=== PATIENT | male | born 1975 | race Caucasian/White ===

== ENCOUNTER 2020-11-10 14:39 | Emergency (ER) | payer BC, SELFPAY ==
[2020-11-10 14:47] VITALS: BP 154/112; PULSE 88; RESP 18; TEMP 36.8; O2SAT 98
--- NOTE | 2020-11-10 14:55 | ED.EYEPROB ---
HPI - Eye Problem General Chief complaint: Eye Problems Stated complaint: right eye itching and matting Time Seen by Provider: 11/10/20 14:55 Source: patient and RN notes reviewed Mode of arrival: ambulatory Limitations: no limitations History of Present Illness HPI Narrative: 45 year old male presents to [facility] care with complaints of 2-day history of itching, burning, and matting shut of right eye with photophobia noted. Patient denies any feeling of foreign body or any trauma to his right eye, he denies any sharp pain or any change in his vision from the right eye. Visual acuity without glasses, right eye 20/50. left 20/40, some whitish mucoid drainage noted to inner canthus of right eye with conjunctiva red. Location: right eye Eye Symptoms: burning, redness, itching, discharge and other (matting shut) Mechanism: none If Pain, Quality: burning Treatments Prior to Arrival: other (cold wash cloth) Related Data Home Medications Medication Instructions Recorded Confirmed amitriptyline 25 mg PO DAILY 11/10/20 11/10/20 escitalopram oxalate 20 mg PO DAILY 11/10/20 11/10/20 lisinopril 40 mg PO DAILY 11/10/20 11/10/20 propranolol 60 mg PO DAILY 11/10/20 11/10/20 rimegepant [Nurtec ODT] 75 mg PO DAILY 11/10/20 11/10/20 Allergies Allergy/AdvReac Type Severity Reaction Status Date / Time No Known Allergies Allergy Verified 11/10/20 15:11 Review of Systems Review of Systems: Narrative: CONSTITUTIONAL: Denies fever, chills, or sweats. EYES: Denies visual changes,positive for redness,and discharge from right eye with burning sensation and itching. and some photophobia of right eye. ENT: Denies rhinorrhea, congestion, sore throat, or otalgia. CARDIOVASCULAR: Denies chest pain, palpitations, or edema. RESPIRATORY: Denies cough or dyspnea. GASTROINTESTINAL: Denies abdominal pain, nausea, vomiting, or diarrhea. GENITOURINARY: Denies dysuria or hematuria. SKIN: Denies rash or itching. MUSCULOSKELETAL: Denies back pain, joint pain, or myalgia. NEUROLOGIC: Denies present headache states history of migraines,no numbness, or weakness. PSYCHIATRIC: Positive history of anxiety or depression. All systems reviewed & are unremarkable except as noted in HPI and below PMFSH Past Medical History Medical History (Updated 11/10/20 @ 15:36 by Mandi Salvador NP) Depression Headache, classical migraine Hypertension Surgical History Surgical History (Updated 11/10/20 @ 15:38 by Mandi Salvador NP) No history of previous surgery Family History Family History (Updated 11/10/20 @ 15:38 by Mandi Salvador NP) Other No significant family history Social History Social History (Updated 11/10/20 @ 15:06 by Mandi Salvador NP) Smoking status: Never smoker Alcohol intake: never Substance use: never Living arrangements: with family Gender identity (if verbalized by the patient): Male Comments At time of signature, agree with nursing past medical, surgical, social and family history. There is no relevant family history pertinent to the presenting complaint Exam Narrative: Exam Narrative: GENERAL: Well-appearing, well-nourished, and in no acute distress. HEAD: Normocephalic, atraumatic. EYES: PERRLA and EOMI. conjunctiva of right eye reddened with mucoid drainage noted to inner canthus of right eye, denies any sharp pain or any change in vision to right eye. ENT: Nares clear, no rhinorrhea or epistaxis. Mucous membranes moist. TM's normal with good light reflex, throat pink with no exudate or lesions or tonsil enlargement. NECK: Supple. no lymphadenopathy CHEST: Clear to auscultation. No respiratory distress.SAO2 98% on room air. HEART: Regular rate and rhythm. No murmur heard. Normal peripheral pulses. ABDOMEN: Soft, nontender, nondistended, normal active bowel sounds. EXTREMITIES: Normal range of motion. No edema. SKIN: Warm, dry, no rash. NEURO: No focal deficits. Alert and oriented x3. Course Vital Signs Vital
[2020-11-10 15:13] VITALS: BP 142/90
== END 2020-11-10 15:14 | disposition home or self-care (01) ==
PROVIDERS: Emergency Provider Registered Nurse
DX: H10.9 Unspecified conjunctivitis (principal); F32.9 Major depressive disorder, single episode, unspecified; I10 Essential (primary) hypertension
CPT/HCPCS: 99213; G0463

== ENCOUNTER 2021-09-06 08:05 | Emergency (ER) | payer BC, SELFPAY ==
[2021-09-06 08:11] VITALS: BP 153/103; PULSE 70; RESP 14; TEMP 36.6; O2SAT 99
--- NOTE | 2021-09-06 08:13 | ED.HA ---
HPI - Headache General Chief Complaint: Upper Respiratory Infection Stated Complaint: Headache Time Seen by Provider: 09/06/21 08:16 Source: patient, RN notes reviewed and old records reviewed Mode of arrival: ambulatory Limitations: no limitations History of Present Illness HPI Narrative: 45-year-old male who presents to [facility] with complaints of awakening at 0500 with headache in his temporal region with congestion in sinus area with body aches. Patient denies any nausea or vomiting, reports that he did take Imitrex this morning but his headache pain is not like his normal migraines. Patient was started on Verapamil 120mg 2 days ago for his elevated blood pressure and patient states that he has been monitoring his blood pressure at home routinely a couple of times a day with his diastolic pressures ranging around 100. Blood pressure checked manually with reading of 156/90. Patient denies any chest pain or any shortness of breath or any acute cough or chest congestion. Patient has had COVID in June of 2021, has not had flu shot Pertinent past history: migraines and hypertension Time: 05:00 Onset description: on awakening Location: temporal (bilateral) and facial Severity: moderate Pain scale (0-10): 5 Quality & Timing: aching Exacerbating factors: none Relieving factors: nothing Context: other (awoke with symptoms) Associated symptoms: cough and other (nasal congestion, temporal headache, facial pressure) Treatments prior to arrival: migraine medication Related Data Home Medications Medication Instructions Recorded Confirmed escitalopram oxalate 20 mg PO DAILY 11/10/20 11/10/20 lisinopril 40 mg PO DAILY 11/10/20 11/10/20 propranolol 60 mg PO DAILY 11/10/20 11/10/20 nabumetone 750 mg PO BID 09/06/21 09/06/21 ondansetron HCl 4 mg PO Q8H PRN 09/06/21 09/06/21 rosuvastatin 10 mg PO DAILY 09/06/21 09/06/21 sumatriptan succinate 50 mg PO DAILY PRN 09/06/21 09/06/21 verapamil 120 mg PO DAILY 09/06/21 09/06/21 Allergies Allergy/AdvReac Type Severity Reaction Status Date / Time enoxaparin [From Lovenox] Allergy Mild Redness of Verified 09/06/21 08:43 Skin Review of Systems Review of Systems: CONSTITUTIONAL: Denies fever, chills, or sweats. EYES: Denies visual changes, redness, or discharge. ENT: Positive for rhinorrhea, congestion, sinus pressure,no sore throat, or otalgia. CARDIOVASCULAR: Denies chest pain, palpitations, or edema. RESPIRATORY: Positive dry cough denies dyspnea. GASTROINTESTINAL: Denies abdominal pain, nausea, vomiting, or diarrhea. GENITOURINARY: Denies dysuria or hematuria. SKIN: Denies rash or itching. MUSCULOSKELETAL: Denies back pain, joint pain, positive for body aches NEUROLOGIC:positive for temporal headache, numbness, or weakness. PSYCHIATRIC: Positive for history of anxiety or depression. All systems reviewed & are unremarkable except as noted in HPI and below PMFSH Past Medical History Medical History (Updated 09/06/21 @ 11:41 by Mandi Salvador NP) Depression DVT (deep venous thrombosis) Headache, classical migraine Hypertension Injury of elbow, right with skin graft Surgical History Surgical History (Updated 09/06/21 @ 08:39 by Mandi Salvador NP) History of carpal tunnel release of both wrists Hx of right knee surgery fracture of knee with pinning Family History Family History (Updated 09/06/21 @ 09:03 by Mandi Salvador NP) Sibling Hypertension Grandparent Malignant neoplasm of prostate Diabetes mellitus Heart disease Mother Factor V Leiden Father History of blood clots Social History Social History Smoking status: Never smoker Alcohol intake: never Substance use: never Gender identity (if verbalized by the patient): Male Comments At time of signature, agree with nursing past medical, surgical, social and family history. There is no relevant family history pertinent to the presen
[2021-09-06 08:30] VITALS: BP 156/90
[2021-09-06 08:55] VITALS: BP 159/102; PULSE 61
[2021-09-06 08:59] VITALS: BP 158/103; PULSE 64
== END 2021-09-06 09:10 | disposition home or self-care (01) ==
PROVIDERS: Emergency Provider Registered Nurse
DX: J06.9 Acute upper respiratory infection, unspecified (principal); R51.9 Headache, unspecified; I10 Essential (primary) hypertension; Z86.718 Personal history of other venous thrombosis and embolism; F32.A Depression, unspecified; Z86.16 Personal history of COVID-19
CPT/HCPCS: 87804; 99213; G0463

== ENCOUNTER 2021-09-22 12:59 | Emergency (ER) | payer BC, SELFPAY ==
[2021-09-22 13:03] VITALS: BP 151/95; PULSE 63; RESP 16; TEMP 36.6; O2SAT 98
--- NOTE | 2021-09-22 13:03 | ED.URI ---
HPI - URI/Sore Throat General Chief Complaint: Upper Respiratory Infection Stated Complaint: Headache/ Sinus Congestion Time Seen by Provider: 09/22/21 13:03 Source: patient and RN notes reviewed History of Present Illness HPI Narrative: Patient is a 45-year-old male who presents the urgent care with complaints of a headache and sinus congestion/pressure. Patient states his symptoms started yesterday when he woke up with a headache. Patient has been following up with his neurologist for his history of headaches/migraines. Patient states that he did take his Imitrex. Denies of any fevers, nausea, vomiting or cough. Denies of sore throat. Denies of any ill contacts. Patient requesting a work note. No other acute complaints. No acute distress noted. Patient aware of the plan of care. Some parts of this dictation were generated by voice recognition software and may contain typographical and/or grammatical inaccuracies. Related Data Home Medications Medication Instructions Recorded Confirmed escitalopram oxalate 20 mg PO DAILY 11/10/20 09/06/21 lisinopril 40 mg PO DAILY 11/10/20 09/06/21 propranolol 60 mg PO DAILY 11/10/20 09/06/21 nabumetone 750 mg PO BID 09/06/21 09/06/21 rosuvastatin 10 mg PO DAILY 09/06/21 09/06/21 sumatriptan succinate 50 mg PO DAILY PRN 09/06/21 09/06/21 verapamil 120 mg PO DAILY 09/06/21 09/06/21 Allergies Allergy/AdvReac Type Severity Reaction Status Date / Time enoxaparin [From Lovenox] Allergy Mild Redness of Verified 09/22/21 13:09 Skin Review of Systems Review of Systems: CONSTITUTIONAL: Denies fever, chills, or sweats. EYES: Denies visual changes, redness, or discharge. ENT: Reports of sinus pressure/congestion and postnasal drainage CARDIOVASCULAR: Denies chest pain, palpitations, or edema. RESPIRATORY: Denies cough or dyspnea. GASTROINTESTINAL: Denies abdominal pain, nausea, vomiting, or diarrhea. GENITOURINARY: Denies dysuria or hematuria. SKIN: Denies rash or itching. MUSCULOSKELETAL: Denies back pain, joint pain, or myalgia. NEUROLOGIC: Reports of headache All other systems reviewed are negative, except as documented in HPI. [facility] Past Medical History Medical History (Updated 09/22/21 @ 13:14 by RUTHIE Toscano) Depression DVT (deep venous thrombosis) Headache, classical migraine Hypertension Injury of elbow, right with skin graft Surgical History Surgical History (Updated 09/06/21 @ 08:39 by Mandi Salvador NP) History of carpal tunnel release of both wrists Hx of right knee surgery fracture of knee with pinning Family History Family History (Updated 09/06/21 @ 09:03 by Mandi Salvador NP) Sibling Hypertension Grandparent Malignant neoplasm of prostate Diabetes mellitus Heart disease Mother Factor V Leiden Father History of blood clots Social History Social History Smoking status: Never smoker Alcohol intake: never Substance use: never Gender identity (if verbalized by the patient): Male Comments At the time of my signature, I reviewed and agree with the nursing past medical, surgical, social, and family history. There is no relevant family history pertinent to the patient complaint. Exam Narrative: GENERAL: This is a well-nourished, well-developed patient, in no apparent distress. HEAD: normocephalic, atraumatic. Moderate frontal sinus tenderness EYES: PERRL. Sclera clear/white. Vision is grossly intact. EARS: External ears normal, auditory canals clear and without drainage, TMs normal without perforation. Hearing grossly intact. NOSE: External nose normal with no obvious nasal discharge, nares without redness, no rhinorrhea. THROAT: Mucous membranes moist, posterior pharynx clear. Moderate postnasal drainage NECK: Neck supple CARDIOVASCULAR: Regular rate and rhythm without murmurs, gallops, or rubs. RESPIRATORY: Clear to auscultation. Breath sounds equal bilater
== END 2021-09-22 13:17 | disposition home or self-care (01) ==
PROVIDERS: Emergency Provider Nurse Practitioner Family
DX: J32.9 Chronic sinusitis, unspecified (principal); I10 Essential (primary) hypertension; F32.A Depression, unspecified; Z86.718 Personal history of other venous thrombosis and embolism
CPT/HCPCS: 99211; G0463

== ENCOUNTER 2021-11-30 11:06 | Emergency (ER) | payer BC, SELFPAY ==
[2021-11-30 11:11] VITALS: BP 160/104; PULSE 61; RESP 16; TEMP 36.4; O2SAT 99
--- NOTE | 2021-11-30 11:23 | ED.URI ---
HPI - URI/Sore Throat General Chief Complaint: Upper Respiratory Infection Stated Complaint: sore throat aches chills Time Seen by Provider: 11/30/21 11:20 Source: patient Mode of arrival: ambulatory Limitations: no limitations History of Present Illness HPI Narrative: Mr. Squires is a 46-year-old male patient presenting to the clinic today with complaints of sore throat, congestion, and cough. He rates his pain 8 out of 10 on the sore throat. States that the symptoms just began last night. He took a COVID test this morning and it was negative. He denies any known exposure today but with flu, COVID, or strep. MD elicited complaint: cough, sore throat, rhinorrhea and nasal congestion Related Data Home Medications Medication Instructions Recorded Confirmed escitalopram oxalate 20 mg tablet 20 mg PO DAILY 11/10/20 11/30/21 lisinopril 40 mg tablet 40 mg PO DAILY 11/10/20 11/30/21 propranolol 60 mg capsule,24 60 mg PO DAILY 11/10/20 11/30/21 hr,extended release rosuvastatin 10 mg tablet 10 mg PO DAILY 09/06/21 11/30/21 sumatriptan succinate 50 mg tablet 50 mg PO DAILY PRN Migraine 09/06/21 11/30/21 Headache verapamil 120 mg tablet,extended 120 mg PO DAILY 09/06/21 11/30/21 release apixaban 5 mg tablet (Eliquis) 5 tablet PO DAILY 11/30/21 11/30/21 Allergies Allergy/AdvReac Type Severity Reaction Status Date / Time enoxaparin [From Lovenox] Allergy Mild Redness of Verified 11/30/21 11:18 Skin Review of Systems Review of Systems: Pertinent positives per HPI. Patient denies any fever, chills, rash, headache, visual changes, dizziness, cough, shortness of breath, chest pain, palpitations, nausea, vomiting, diarrhea, constipation, abdominal pain, or any urinary issues. [facility] Past Medical History Medical History Depression DVT (deep venous thrombosis) Headache, classical migraine Hypertension Injury of elbow, right with skin graft Surgical History Surgical History History of carpal tunnel release of both wrists Hx of right knee surgery fracture of knee with pinning Family History Family History Sibling Hypertension Grandparent Malignant neoplasm of prostate Diabetes mellitus Heart disease Mother Factor V Leiden Father History of blood clots Social History Social History Smoking status: Never smoker Alcohol intake: never Substance use: never Gender identity (if verbalized by the patient): Male Comments At the time of my signature, I reviewed and agree with the nursing past medical, surgical, social, and family history. There is no relevant family history pertinent to the patient complaint. Exam Narrative: General: Well-developed, obese, in no apparent distress Head: Normocephalic, atraumatic Eyes: Pupils equally round and reactive to light bilaterally, EOM intact, sclera and conjunctive clear, no discharge, lids normal Ears: TMs intact and dull, ear canals clear, no drainage, grossly hearing normal. Nose: Nares patent, clear nasal discharge, mild inflammation, no sinus tenderness. Mouth: Oral pharynx without lesions or masses, good dentition, MMM. Oropharynx red and erythemic with tonsillar enlargement Neck: Supple, trachea midline, positive enlargement of anterior cervical nodes, no thyroid masses or goiter palpable. Cardio: Regular rate and rhythm, s1 and s2 normal, no murmur appreciated. Resp: Clear to auscultation bilaterally, no rhonchi, rales, wheezing or rubs Course Course Emergency Course: Portions of this record may have been created with voice recognition software. Level of Care: Express Care Visit Vital Signs Vital signs: Vital Signs Temperature 36.4 C 11/30/21 11:11 Pulse Rate 61 11/30/21 11:11 Respi
== END 2021-11-30 11:59 | disposition home or self-care (01) ==
PROVIDERS: Emergency Provider Nurse Practitioner Family
DX: J02.9 Acute pharyngitis, unspecified (principal); B34.9 Viral infection, unspecified; I10 Essential (primary) hypertension; Z86.718 Personal history of other venous thrombosis and embolism; F32.A Depression, unspecified
CPT/HCPCS: 87081; 87880; 99213; G0463

== ENCOUNTER 2022-01-19 15:54 | Emergency (ER) | payer BC, SELFPAY ==
[2022-01-19 16:05] VITALS: BP 138/90; PULSE 60; RESP 18; TEMP 36.9; O2SAT 100
--- NOTE | 2022-01-19 16:29 | ED.HA ---
HPI - Headache General Chief Complaint: Headache Stated Complaint: masive migraine Time Seen by Provider: 01/19/22 16:29 Source: patient Mode of arrival: ambulatory Limitations: no limitations History of Present Illness HPI Narrative: 46 yo M presents with c/o migraine for 2 days. Reports photophobia, N/V, light sensitivity. Normal migraine pain. Thinks is related to recent stress, step dad . Takes daily medication to prevent migraines. Unsure of name. Gets botox every few months. Ambulatory with steady gait. No N/V at . Also needs work note. All systems reviewed and negative except as noted above. Related Data Home Medications Medication Instructions Recorded Confirmed escitalopram oxalate 20 mg tablet 20 mg PO DAILY 11/10/20 01/19/22 lisinopril 40 mg tablet 40 mg PO DAILY 11/10/20 01/19/22 propranolol 60 mg capsule,24 60 mg PO DAILY 11/10/20 01/19/22 hr,extended release rosuvastatin 10 mg tablet 10 mg PO DAILY 09/06/21 01/19/22 sumatriptan succinate 50 mg tablet 50 mg PO DAILY PRN Migraine 09/06/21 01/19/22 Headache verapamil 120 mg tablet,extended 120 mg PO DAILY 09/06/21 01/19/22 release apixaban 5 mg tablet (Eliquis) 5 tablet PO DAILY 11/30/21 01/19/22 nabumetone 750 mg tablet 750 mg PO BID 01/19/22 01/19/22 Allergies Allergy/AdvReac Type Severity Reaction Status Date / Time enoxaparin [From Lovenox] Allergy Mild Redness of Verified 01/19/22 16:09 Skin Review of Systems Review of Systems: CONSTITUTIONAL: Denies fever, chills, or sweats. EYES: Denies visual changes, redness, or discharge. ENT: Denies rhinorrhea, congestion, sore throat, or otalgia. CARDIOVASCULAR: Denies chest pain, palpitations, or edema. RESPIRATORY: Denies cough or dyspnea. GASTROINTESTINAL: Denies abdominal pain, nausea, vomiting, or diarrhea. GENITOURINARY: Denies dysuria or hematuria. SKIN: Denies rash or itching. MUSCULOSKELETAL: Denies back pain, joint pain, or myalgia. NEUROLOGIC: Reports migraine. Denies numbness, or weakness. PSYCHIATRIC: Denies anxiety or depression. All other systems reviewed are negative, except as documented in HPI. [facility] Past Medical History Medical History Depression DVT (deep venous thrombosis) Headache, classical migraine Hypertension Injury of elbow, right with skin graft Surgical History Surgical History History of carpal tunnel release of both wrists Hx of right knee surgery fracture of knee with pinning Family History Family History Sibling Hypertension Grandparent Malignant neoplasm of prostate Diabetes mellitus Heart disease Mother Factor V Leiden Father History of blood clots Social History Social History Smoking status: Never smoker Alcohol intake: never Substance use: never Gender identity (if verbalized by the patient): Male Comments At time of signature, agree with nursing past medical, surgical, social and family history. There is no relevant family history pertinent to the presenting complaint. Exam Narrative: GENERAL: This is a well-nourished, well-developed patient, in no apparent distress. HEAD: normocephalic, atraumatic. EYES: PERRL. Sclera clear/white. Vision is grossly intact. Extraocular motions normal. EARS: External ears normal NOSE: External nose normal NECK: Neck supple, non-tender without lymphadenopathy, masses or thyromegaly. CARDIOVASCULAR: Regular rate and rhythm without murmurs, gallops, or rubs. RESPIRATORY: Clear to auscultation. Breath sounds equal bilaterally. No wheezes, rales, or rhonchi. SKIN: warm, Dry, intact with no suspicious lesions or rash, good texture and turgor. NEURO: awake, alert, and oriented to person, place and time. There were no obvious focal neurologi
[2022-01-19] MEDS: KETOROLAC (*BKC) 60 MG/2 ML VIAL IM (16:40)
[2022-01-19] MEDS: ONDANSETRON HCL ODT 4 MG TABLET SUBLINGUAL (16:40)
[2022-01-19] MEDS: diphenhydrAMINE HCl CAP 25 MG CAPSULE PO (16:40)
== END 2022-01-19 17:00 | disposition home or self-care (01) ==
PROVIDERS: Emergency Provider Nurse Practitioner Family
DX: G43.909 Migraine, unspecified, not intractable, without status migrainosus (principal); I10 Essential (primary) hypertension; F32.A Depression, unspecified; Z86.718 Personal history of other venous thrombosis and embolism
CPT/HCPCS: 96372; 99213; A9270; G0463; J1885

== ENCOUNTER 2022-06-20 11:30 | Emergency (ER) | payer BC, SELFPAY ==
--- NOTE | 2022-06-20 11:35 | ED.HA ---
HPI - Headache General Chief Complaint: Headache Stated Complaint: Headache/Blood Pressure Problem Time Seen by Provider: 06/20/22 11:35 Source: patient and RN notes reviewed History of Present Illness HPI Narrative: Patient is a 46-year-old male who presents to urgent care with complaints of headache, cough, nasal drainage, body aches. Patient states he has not taken anything [id number] for his symptoms. Patient states the symptoms started 2 days ago. No other acute complaints. No acute distress noted. Patient aware of the plan of care. Some parts of this dictation were generated by voice recognition software and may contain typographical and/or grammatical inaccuracies. Related Data Home Medications Medication Instructions Recorded Confirmed escitalopram oxalate 20 mg tablet 20 mg PO DAILY 11/10/20 01/19/22 lisinopril 40 mg tablet 40 mg PO DAILY 11/10/20 01/19/22 propranolol 60 mg capsule,24 60 mg PO DAILY 11/10/20 01/19/22 hr,extended release rosuvastatin 10 mg tablet 10 mg PO DAILY 09/06/21 01/19/22 sumatriptan succinate 50 mg tablet 50 mg PO DAILY PRN Migraine 09/06/21 01/19/22 Headache verapamil 120 mg tablet,extended 120 mg PO DAILY 09/06/21 01/19/22 release apixaban 5 mg tablet (Eliquis) 5 tablet PO DAILY 11/30/21 01/19/22 nabumetone 750 mg tablet 750 mg PO BID 01/19/22 01/19/22 Allergies Allergy/AdvReac Type Severity Reaction Status Date / Time enoxaparin [From Lovenox] Allergy Mild Redness of Verified 06/20/22 11:49 Skin Review of Systems Review of Systems: CONSTITUTIONAL: Denies fever, chills, or sweats. EYES: Denies visual changes, redness, or discharge. ENT: Reports of congestion, postnasal drainage, rhinorrhea CARDIOVASCULAR: Denies chest pain, palpitations, or edema. RESPIRATORY: reports of cough without dyspnea GASTROINTESTINAL: Denies abdominal pain, nausea, vomiting, or diarrhea. GENITOURINARY: Denies dysuria or hematuria. SKIN: Denies rash or itching. MUSCULOSKELETAL: Denies back pain, joint pain, or myalgia. NEUROLOGIC: Denies headache, numbness, or weakness. All other systems reviewed are negative, except as documented in HPI. PMFSH Past Medical History Medical History Depression DVT (deep venous thrombosis) Headache, classical migraine Hypertension Injury of elbow, right with skin graft Surgical History Surgical History History of carpal tunnel release of both wrists Hx of right knee surgery fracture of knee with pinning Family History Family History Sibling Hypertension Grandparent Malignant neoplasm of prostate Diabetes mellitus Heart disease Mother Factor V Leiden Father History of blood clots Social History Social History Smoking status: Never smoker Alcohol intake: never Substance use: never Gender identity (if verbalized by the patient): Male Comments At the time of my signature, I reviewed and agree with the nursing past medical, surgical, social, and family history. There is no relevant family history pertinent to the patient complaint. Exam Narrative: GENERAL: This is a well-nourished, well-developed patient. Appears fatigued HEAD: normocephalic, atraumatic. EYES: PERRL. Sclera clear/white. Vision is grossly intact. EARS: External ears normal, auditory canals clear and without drainage, TMs normal without perforation. Hearing grossly intact. NOSE: External nose normal with no obvious nasal discharge, nares without redness, no rhinorrhea. THROAT: Mucous membranes moist, posterior pharynx clear. moderate postnasal drainage NECK: Neck supple, non-tender without lymphadenopathy, masses or thyromegaly. CARDIOVASCULAR: Regular rate and rhythm without murmurs, gallops, or rubs. R
[2022-06-20 11:43] VITALS: BP 136/104; PULSE 60; RESP 16; TEMP 36.7; O2SAT 97
== END 2022-06-20 12:12 | disposition home or self-care (01) ==
PROVIDERS: Emergency Provider Nurse Practitioner Family
DX: J10.1 Influenza due to other identified influenza virus with other respiratory manifestations (principal); I10 Essential (primary) hypertension; Z86.718 Personal history of other venous thrombosis and embolism; Z20.822 Contact with and (suspected) exposure to COVID-19
CPT/HCPCS: 87426; 87804; 99213; C9803; G0463

== ENCOUNTER 2022-07-06 08:47 | Emergency (ER) | payer BC, SELFPAY ==
[2022-07-06 08:51] VITALS: BP 149/111; PULSE 81; RESP 16; TEMP 36.6; O2SAT 99
--- NOTE | 2022-07-06 08:55 | ED.URI ---
HPI - URI/Sore Throat General Chief Complaint: Eye Problems Stated Complaint: right eye/sinus issues Time Seen by Provider: 07/06/22 09:12 Source: patient, RN notes reviewed and old records reviewed Mode of arrival: ambulatory Limitations: no limitations History of Present Illness HPI Narrative: 46-year-old presents to the [facility] with complaints sinus congestion, rhinorrhea and right eye redness. patient reports that symptoms started last night. States children were home last week [place]. patient denies any blurry vision or change in vision. Woke up this morning with the eye crusted over. No treatment prior to Related Data Home Medications Medication Instructions Recorded Confirmed escitalopram oxalate 20 mg tablet 20 mg PO DAILY 11/10/20 07/06/22 lisinopril 40 mg tablet 40 mg PO DAILY 11/10/20 07/06/22 propranolol 60 mg capsule,24 60 mg PO DAILY 11/10/20 07/06/22 hr,extended release rosuvastatin 10 mg tablet 10 mg PO DAILY 09/06/21 07/06/22 sumatriptan succinate 50 mg tablet 50 mg PO DAILY PRN Migraine 09/06/21 07/06/22 Headache verapamil 120 mg tablet,extended 120 mg PO DAILY 09/06/21 07/06/22 release apixaban 5 mg tablet (Eliquis) 5 tablet PO DAILY 11/30/21 07/06/22 nabumetone 750 mg tablet 750 mg PO BID 01/19/22 07/06/22 Allergies Allergy/AdvReac Type Severity Reaction Status Date / Time enoxaparin [From Lovenox] Allergy Mild Redness of Verified 07/06/22 09:08 Skin Review of Systems Review of Systems: All systems reviewed & are unremarkable except as noted in HPI and below Constitutional: Constitutional: Reports no additional constitutional complaints Eyes: Eyes: Reports as per HPI ENT: Reports as per HPI and Reports nasal congestion Cardiovascular: Cardiovascular: Reports no additional cardiovascular complaints, Denies chest pain and Denies dyspnea Respiratory: Respiratory: Reports no additional respiratory complaints, Denies chest congestion, Denies cough and Denies dyspnea Gastrointestinal: Gastrointestinal: Reports no additional gastrointestinal complaints, Denies abdominal pain, Denies nausea and Denies vomiting Musculoskeletal: Musculoskeletal: Reports no additional musculoskeletal complaints Integumentary/Breasts: Skin/Breast: Reports system reviewed and no additional complaints, except as docu Neurologic: Reports system reviewed and no additional complaints, except as documented Psychiatric: Psychiatric: Reports no additional psychiatric complaints Allergic/Immunologic: Allergic/Immunologic: Reports no additional allergic/immunologic complaints PMFSH Past Medical History Medical History Depression DVT (deep venous thrombosis) Headache, classical migraine Hypertension Injury of elbow, right with skin graft Surgical History Surgical History History of carpal tunnel release of both wrists Hx of right knee surgery fracture of knee with pinning Family History Family History Sibling Hypertension Grandparent Malignant neoplasm of prostate Diabetes mellitus Heart disease Mother Factor V Leiden Father History of blood clots Social History Social History Smoking status: Never smoker Alcohol intake: never Substance use: never Gender identity (if verbalized by the patient): Male Comments At the time of my signature, I reviewed and agree with the nursing past medical, surgical, social, and family history. There is no relevant family history pertinent to the patient complaint. Exam Const: General: cooperative, healthy appearing, comfortable, no acute distress, well developed, alert and well nourished Nutritional Appearance: well nourished and obese Orientation/consciousness: patient oriented x3 Limitations: no limitations HENMT:
== END 2022-07-06 09:29 | disposition home or self-care (01) ==
PROVIDERS: Emergency Provider Nurse Practitioner
DX: H10.9 Unspecified conjunctivitis (principal); J34.89 Other specified disorders of nose and nasal sinuses; I10 Essential (primary) hypertension; F32.A Depression, unspecified; Z86.718 Personal history of other venous thrombosis and embolism
CPT/HCPCS: 99213; G0463

== ENCOUNTER 2022-07-08 14:17 | Emergency (ER) | payer BC, SELFPAY ==
--- NOTE | ~2022-07-08 | XR_ITS ---
XR chest 2V DATE: 07/08/2022 14:49 INDICATION: Cough for one week. TECHNIQUE: 2 views COMPARISON: None FINDINGS: There is minimal infiltrate or atelectasis at the lung bases. The lungs otherwise appear cl ear. No pleural effusion or pulmonary vascular congestion or pneumothorax. Normal heart size. No hilar or mediastinal enlargement. Included skeletal structures are unremarkable. IMPRESSION: Minimal infiltrate or atelectasis at the lung bases Reviewed, dictated and finalized at location [facility]
[2022-07-08 14:25] VITALS: BP 135/86; PULSE 67; RESP 22; TEMP 36.8; O2SAT 97
--- NOTE | 2022-07-08 15:56 | ED.URI ---
HPI - URI/Sore Throat General Chief Complaint: Upper Respiratory Infection Stated Complaint: deep cough / nausea Time Seen by Provider: 07/08/22 15:56 Source: patient, RN notes reviewed and old records reviewed Mode of arrival: ambulatory Limitations: no limitations History of Present Illness HPI Narrative: 46 year old male presents to [facility] with complaints of being diagnosed with influenza 2 weeks ago and pneumonia, reports that he was treated with antibiotics and is taking NyQuil Patient reports that cough and congestion and nasal congestion has increased for 2 day duration and he has some shortness of breath with exertion. Patient reports that he has not noted any fevers, chills or sweats or any myalgias.No recent antibiotics noted in medication history. MD elicited complaint: cough, rhinorrhea, nasal congestion and other (report some dyspnea) Pertinent past history: other (influenza diagnosed 06/20/2022) Onset (ago): day(s) (2) Able to tolerate fluids by mouth: Yes Treatments prior to arrival: other (NyQuil) Related Data Home Medications Medication Instructions Recorded Confirmed escitalopram oxalate 20 mg tablet 20 mg PO DAILY 11/10/20 07/08/22 lisinopril 40 mg tablet 40 mg PO DAILY 11/10/20 07/08/22 propranolol 60 mg capsule,24 60 mg PO DAILY 11/10/20 07/08/22 hr,extended release rosuvastatin 10 mg tablet 10 mg PO DAILY 09/06/21 07/08/22 sumatriptan succinate 50 mg tablet 50 mg PO DAILY PRN Migraine 09/06/21 07/08/22 Headache verapamil 120 mg tablet,extended 120 mg PO DAILY 09/06/21 07/08/22 release apixaban 5 mg tablet (Eliquis) 5 tablet PO DAILY 11/30/21 07/08/22 nabumetone 750 mg tablet 750 mg PO BID 01/19/22 07/08/22 Allergies Allergy/AdvReac Type Severity Reaction Status Date / Time enoxaparin [From Lovenox] Allergy Mild Redness of Verified 07/08/22 14:26 Skin Review of Systems Review of Systems: CONSTITUTIONAL: Reports malaise,no reported chills, sweats, or fever. EYES: Denies visual changes, redness, or discharge. ENT: Reports rhinorrhea, congestion, sinus pain,no otalgia and no sore throat. CARDIOVASCULAR: Denies chest pain, palpitations, or edema. RESPIRATORY: Reports cough.? Reports dyspnea.with exertion GASTROINTESTINAL: Denies abdominal pain, nausea, vomiting, diarrhea SKIN: Denies rash or itching. MUSCULOSKELETAL: Denies myalgia. NEUROLOGIC: Denies headache. All systems reviewed & are unremarkable except as noted in HPI and below PMFSH Past Medical History Medical History Depression DVT (deep venous thrombosis) Headache, classical migraine Hypertension Injury of elbow, right with skin graft Surgical History Surgical History History of carpal tunnel release of both wrists Hx of right knee surgery fracture of knee with pinning Family History Family History Sibling Hypertension Grandparent Malignant neoplasm of prostate Diabetes mellitus Heart disease Mother Factor V Leiden Father History of blood clots Social History Social History Smoking status: Never smoker Alcohol intake: never Substance use: never Gender identity (if verbalized by the patient): Male Comments At time of signature, agree with nursing past medical, surgical, social and family history. There is no relevant family history pertinent to the presenting complaint Exam Narrative: GENERAL: Well-appearing, well-nourished, and in no acute distress. HEAD: Normocephalic EYES: PERRLA, conjunctivae clear ENT: Nares clear, turbinates edematous and erythematous, clear to light yellow discharge. Mucous membranes moist. TM pearly brennan with dull light reflex bilaterally; no tragal tenderness. Oropharynx erythematous without lesions. Tonsils not enlarged and
== END 2022-07-08 16:22 | disposition home or self-care (01) ==
PROVIDERS: Emergency Provider Registered Nurse
DX: R91.8 Other nonspecific abnormal finding of lung field (principal); I10 Essential (primary) hypertension; Z86.718 Personal history of other venous thrombosis and embolism; F32.A Depression, unspecified
CPT/HCPCS: 71046; 99213; G0463

== ENCOUNTER 2022-07-31 09:10 | Emergency (ER) | payer BC, SELFPAY ==
[2022-07-31 09:14] VITALS: BP 128/98; PULSE 65; RESP 20; TEMP 37.1; O2SAT 98
[2022-07-31 09:45] VITALS: BP 130/88
--- NOTE | 2022-07-31 09:46 | ED.GENADULT ---
HPI - General Adult General Chief complaint: Unspecified Stated complaint: Headache/Blood Pressure Problem Time Seen by Provider: 07/31/22 09:46 Source: patient, RN notes reviewed and old records reviewed Mode of arrival: ambulatory Limitations: no limitations History of Present Illness HPI narrative: 46-year-old male who [facility] with complaints elevation of blood pressure this morning at home and also migraine headache. Patient states he check his blood pressure was 175/125, he called his doctor and was told to come to [facility]. Patient states at 4 a.m. he woke up with migraine headache and he took his sumatriptan at 0430 and repeated dose at 0700 and he continues to have headache pain with photophobia, states that he also took Excedrin migraine. Blood pressure taken manually with reading of 140/90. Patient reports that he gets BOTOX for his headaches and had injections last week. MD complaint: headache, blood pressure elevated Onset (ago): hour(s) (0430) Location: face (bilateral temples) Severity scale (1-10): 8 Treatments prior to arrival: other (Excedrin Migraine,Sumatriptin doses X2.) Related Data Home Medications Medication Instructions Recorded Confirmed escitalopram oxalate 20 mg tablet 20 mg PO DAILY 11/10/20 07/31/22 lisinopril 40 mg tablet 40 mg PO DAILY 11/10/20 07/31/22 propranolol 60 mg capsule,24 60 mg PO DAILY 11/10/20 07/31/22 hr,extended release rosuvastatin 10 mg tablet 10 mg PO DAILY 09/06/21 07/31/22 sumatriptan succinate 50 mg tablet 50 mg PO DAILY PRN Migraine 09/06/21 07/31/22 Headache verapamil 120 mg tablet,extended 120 mg PO DAILY 09/06/21 07/31/22 release apixaban 5 mg tablet (Eliquis) 5 tablet PO DAILY 11/30/21 07/31/22 nabumetone 750 mg tablet 750 mg PO BID 01/19/22 07/31/22 Allergies Allergy/AdvReac Type Severity Reaction Status Date / Time enoxaparin [From Lovenox] Allergy Mild Redness of Verified 07/31/22 09:22 Skin Review of Systems Review of Systems: CONSTITUTIONAL: Denies fever, chills, or sweats. EYES: Denies visual changes, redness, or discharge. positive for photophobia ENT: Denies rhinorrhea, congestion, sore throat, or otalgia. CARDIOVASCULAR: Denies chest pain, palpitations, or edema. RESPIRATORY: Denies cough or dyspnea. GASTROINTESTINAL: Denies abdominal pain, nausea, vomiting, or diarrhea. GENITOURINARY: Denies dysuria or hematuria. SKIN: Denies rash or itching. MUSCULOSKELETAL: Denies back pain, joint pain, or myalgia. NEUROLOGIC: positive headache, denies numbness, or weakness,no weakness of any extremity reported PSYCHIATRIC: Denies anxiety or depression. All systems reviewed & are unremarkable except as noted in HPI and below PMFSH Past Medical History Medical History Depression DVT (deep venous thrombosis) Headache, classical migraine Hypertension Injury of elbow, right with skin graft Surgical History Surgical History History of carpal tunnel release of both wrists Hx of right knee surgery fracture of knee with pinning Family History Family History Sibling Hypertension Grandparent Malignant neoplasm of prostate Diabetes mellitus Heart disease Mother Factor V Leiden Father History of blood clots Social History Social History Smoking status: Never smoker Alcohol intake: never Substance use: never Living arrangements: with family Gender identity (if verbalized by the patient): Male Comments At time of signature, agree with nursing past medical, surgical, social and family history. There is no relevant family history pertinent to the presenting complaint Exam Narrative: GENERAL: Well-appearing, well-nourished, and in no acute distress. HEAD: Normocephalic, atraumatic. EYES:
[2022-07-31] MEDS: KETOROLAC (*BKC) 60 MG/2 ML VIAL IM (10:07)
[2022-07-31 10:20] VITALS: BP 140/90
== END 2022-07-31 10:35 | disposition home or self-care (01) ==
PROVIDERS: Emergency Provider Registered Nurse
DX: G43.909 Migraine, unspecified, not intractable, without status migrainosus (principal); I10 Essential (primary) hypertension; F32.A Depression, unspecified; Z86.718 Personal history of other venous thrombosis and embolism
CPT/HCPCS: 96372; 99213; G0463; J1885

== ENCOUNTER 2022-10-15 12:28 | Emergency (ER) | payer BC, SELFPAY ==
--- NOTE | 2022-10-15 12:37 | ED.URI ---
HPI - URI/Sore Throat General Chief Complaint: Upper Respiratory Infection Stated Complaint: Headahce/Congestion Source: patient and RN notes reviewed History of Present Illness HPI Narrative: 46-year-old male presents urgent care with complaints of congestion x2 days. Patient reports a a sinus pressure headache. Patient reports history of migraines and states this headache is so sensitive and sound sensitive just like his migraines. Patient states he took his preventative migraine medication without relief. Denies any ear pain, sore throat, chest pain, shortness of breath, or vomiting. Some parts of this dictation were generated by voice recognition software and may contain typographical and/or grammatical inaccuracies. Related Data Home Medications Medication Instructions Recorded Confirmed escitalopram oxalate 20 mg tablet 20 mg PO DAILY 11/10/20 07/31/22 lisinopril 40 mg tablet 40 mg PO DAILY 11/10/20 07/31/22 propranolol 60 mg capsule,24 60 mg PO DAILY 11/10/20 07/31/22 hr,extended release rosuvastatin 10 mg tablet 10 mg PO DAILY 09/06/21 07/31/22 sumatriptan succinate 50 mg tablet 50 mg PO DAILY PRN Migraine 09/06/21 07/31/22 Headache verapamil 120 mg tablet,extended 120 mg PO DAILY 09/06/21 07/31/22 release apixaban 5 mg tablet (Eliquis) 5 tablet PO DAILY 11/30/21 07/31/22 nabumetone 750 mg tablet 750 mg PO BID 01/19/22 07/31/22 Allergies Allergy/AdvReac Type Severity Reaction Status Date / Time enoxaparin [From Lovenox] Allergy Mild Redness of Verified 07/31/22 09:22 Skin Review of Systems Review of Systems: Pertinent positives and pertinent negatives per HPI. [facility] Past Medical History Medical History Depression DVT (deep venous thrombosis) Headache, classical migraine Hypertension Injury of elbow, right with skin graft Surgical History Surgical History History of carpal tunnel release of both wrists Hx of right knee surgery fracture of knee with pinning Family History Family History Sibling Hypertension Grandparent Malignant neoplasm of prostate Diabetes mellitus Heart disease Mother Factor V Leiden Father History of blood clots Social History Social History Smoking status: Never smoker Alcohol intake: never Substance use: never Living arrangements: with family Gender identity (if verbalized by the patient): Male Comments At the time of my signature, I reviewed and agree with the nursing past medical, surgical, social, and family history. There is no relevant family history pertinent to the patient complaint. Exam Narrative: GENERAL: This is a well-nourished, well-developed patient, in no apparent distress. HEAD: normocephalic, atraumatic. EYES: PERRL. Sclera clear/white. Vision is grossly intact. EARS: External ears normal, auditory canals clear and without drainage, TMs normal without perforation. Hearing grossly intact. NOSE: External nose normal with no obvious nasal discharge, nares without redness, no rhinorrhea. THROAT: Mucous membranes moist, posterior pharynx clear. NECK: Neck supple, non-tender without lymphadenopathy, masses or thyromegaly. CARDIOVASCULAR: Regular rate and rhythm without murmurs, gallops, or rubs. RESPIRATORY: Clear to auscultation. Breath sounds equal bilaterally. No wheezes, rales, or rhonchi. GASTROINTESTINAL: Abdomen soft, non-tender, nondistended. Bowel sounds are active. No hepato-splenomegaly, or palpable masses. No guarding. SKIN: warm, intact with no suspicious lesions or rash, good texture and turgor. NEURO: awake, alert, and oriented to person, place and time. There were no obvious focal neurologic abnormalities. EXTREMITIES: No clubbing, cyanosis, or edema. No joint tenderness, effusion, or edema noted.
[2022-10-15 12:38] VITALS: BP 134/85; PULSE 63; RESP 16; TEMP 36.6; O2SAT 98
== END 2022-10-15 13:00 | disposition home or self-care (01) ==
PROVIDERS: Emergency Provider Nurse Practitioner Family
DX: J06.9 Acute upper respiratory infection, unspecified (principal); I10 Essential (primary) hypertension; F32.A Depression, unspecified; Z86.718 Personal history of other venous thrombosis and embolism
CPT/HCPCS: 99213; G0463

== ENCOUNTER 2022-12-13 08:14 | Emergency (ER) | payer BC, SELFPAY ==
[2022-12-13 08:18] VITALS: BP 143/98; PULSE 68; RESP 20; TEMP 36.2; O2SAT 99
--- NOTE | 2022-12-13 08:33 | ED.BACK ---
HPI - Back Pain/Injury General Chief Complaint: Back Pain/Injury Stated Complaint: Lower Back Pain History of Present Illness HPI Narrative: Pt is a 47 y/o male, PMHx of DVT (on Eliquis), HTN, migraine BRICENO and obesity, presents to with one week hx of low back pain, worse with movement, described as a spasm. He denies recollection of specific injury but states he often has to lift heavy objects at work. He has no radicular symptoms, bowel or bladder incontinence or saddle anesteshia. He has taken Midol for pain without relief. He denies any additional associated symptoms or modifying factors. He is requests a work note. Related Data Home Medications Medication Instructions Recorded Confirmed escitalopram oxalate 20 mg tablet 20 mg PO DAILY 11/10/20 07/31/22 lisinopril 40 mg tablet 40 mg PO DAILY 11/10/20 07/31/22 propranolol 60 mg capsule,24 60 mg PO DAILY 11/10/20 07/31/22 hr,extended release rosuvastatin 10 mg tablet 10 mg PO DAILY 09/06/21 07/31/22 sumatriptan succinate 50 mg tablet 50 mg PO DAILY PRN Migraine 09/06/21 07/31/22 Headache verapamil 120 mg tablet,extended 120 mg PO DAILY 09/06/21 07/31/22 release apixaban 5 mg tablet (Eliquis) 5 tablet PO DAILY 11/30/21 07/31/22 nabumetone 750 mg tablet 750 mg PO BID 01/19/22 07/31/22 Allergies Allergy/AdvReac Type Severity Reaction Status Date / Time enoxaparin [From Lovenox] Allergy Mild Redness of Verified 12/13/22 08:29 Skin Review of Systems Review of Systems: refer to HPI Musculoskeletal: Comments: refer to HPI [facility] Past Medical History Medical History Depression DVT (deep venous thrombosis) Headache, classical migraine Hypertension Injury of elbow, right with skin graft Surgical History Surgical History History of carpal tunnel release of both wrists Hx of right knee surgery fracture of knee with pinning Family History Family History Sibling Hypertension Grandparent Malignant neoplasm of prostate Diabetes mellitus Heart disease Mother Factor V Leiden Father History of blood clots Social History Social History Smoking status: Never smoker Alcohol intake: never Substance use: never Living arrangements: with family Gender identity (if verbalized by the patient): Male Exam Const: General: healthy appearing, no acute distress and alert Orientation/consciousness: patient oriented x3 Limitations: no limitations Other: obese HENMT: Head: normal to inspection Face/Nose/Sinus: Normal external nose present Eyes: Conjunctivae: conjunctivae normal EOM: EOMs intact bilaterally Neck: Neck: normal visual inspection, no lymphadenopathy and no meningeal signs Chest: Chest palpation & inspection: normal inspection of the chest Resp: Effort & Inspection: normal respiratory effort Auscultation: clear to auscultation bilaterally Cardio: Rate: regular rate Rhythm: regular rhythm GI: Inspection: distended Back/Spine/Pelvis: Back: no CVA tenderness Other: Pt is TTP over the SI joints bilaterally and along the lumbar paraspinal muscles bilaterally. No spasm palpable. No T or L spine point tenderness, no step offs. No gross curvature abnormalities Skin: General skin exam: normal color Rashes: no rashes Wounds: no wounds Neuro: General: patient oriented x3 and moves all extremities Cranial nerves: Yes Nystagmus not present Speech: normal speech Gait exam (Neuro): Normal gait present Course Course Emergency Course: plan: to treat with short steroid pack, muscle relaxants, RICE, FU with PCP if symptoms are not improving Level of Care: [facility] Visit ([id number]) Vital Signs Vital signs: Vital Signs Temperature 36.2 C L 12/13/22 08:18 Pulse Rate 68 06/2
== END 2022-12-13 08:49 | disposition home or self-care (01) ==
PROVIDERS: Emergency Provider Nurse Practitioner Family
DX: M53.3 Sacrococcygeal disorders, not elsewhere classified (principal); S39.012A Strain of muscle, fascia and tendon of lower back, initial encounter; X58.XXXA Exposure to other specified factors, initial encounter; I10 Essential (primary) hypertension; E66.9 Obesity, unspecified; Z68.36 Body mass index [BMI] 36.0-36.9, adult; Z86.718 Personal history of other venous thrombosis and embolism; Z79.01 Long term (current) use of anticoagulants
CPT/HCPCS: 99213; G0463